=== PATIENT | male | born 1975 | race Caucasian/White ===

== ENCOUNTER 2018-10-04 13:57 | Emergency (ER) | payer SELFPAY ==
[~2018-10-04] VITALS: Ht 177.8 cm; Wt 72.7 kg
[2018-10-04 14:10] VITALS: BP 139/111; Ht 177.8 cm; Wt 72.7 kg
== END 2018-10-04 15:04 | disposition left against medical advice (07) ==
LOC: D.ER 13:57
DX: R68.84 Jaw pain (principal)